=== PATIENT | female | born 1945 | race Hispanic/Latino ===

== ENCOUNTER 2019-02-17 18:57 | Emergency (ER) | payer MEDICARE, OTHER ==
[~2019-02-17] VITALS: Ht 149.9 cm; Wt 46.7 kg
[~2019-02-17 18:57] MED LIST: CYCLOBENZAPRINE5 MG PO; LEVOTHYROXINE50 MCG PO; LORTAB 5-325 M1 EACH PO; NORCO 5-325 TA1 EACH PO; PREDNISONE20 MG PO
--- NOTE | 2019-02-18 18:16 | EKG ---
[facility] [address] [facility] [place], [place] [address] Signed Sinus bradycardia Otherwise normal ECG Confirmed by COLT CROW MD ([id number]) on 02/18/2019 6:16:15 PM Electronically Signed By: COLT CROW MD 02/18/19 1816 PATIENT NAME: EMILIA SAYRA FRANCO Electrocardiogram DATE OF : 45 PHYSICIAN: COLT CROW MD REPORT #: [id number] REPORT IS CONFIDENTIAL AND NOT TO BE RELEASED WITHOUT AUTHORIZATION
== END 2019-02-17 21:42 | disposition home or self-care (01) ==
LOC: ED 18:57
DX: R03.0 Elevated blood-pressure reading, without diagnosis of hypertension (principal); R06.00 Dyspnea, unspecified; E03.9 Hypothyroidism, unspecified; Z79.899 Other long term (current) drug therapy
CPT/HCPCS: 71046; 80053; 83880; 84484; 85025; 93005; 93010; 99283-25

== ENCOUNTER 2019-08-09 10:51 | Emergency (ER) | payer MEDICARE, OTHER ==
[~2019-08-09] VITALS: Ht 149.9 cm; Wt 46.7 kg
== END 2019-08-09 12:28 | disposition home or self-care (01) ==
LOC: ED 10:51
DX: M17.11 Unilateral primary osteoarthritis, right knee (principal); E03.9 Hypothyroidism, unspecified; Z79.899 Other long term (current) drug therapy
CPT/HCPCS: 73560; 99283-25

== ENCOUNTER 2020-01-19 23:13 | Emergency (ER) | payer MEDICARE, OTHER ==
[~2020-01-19] VITALS: Ht 149.9 cm; Wt 46.3 kg
[2020-01-19] MEDS ORDERED: LISINOPRIL20 MG PO (23:32)
--- NOTE | 2020-01-21 11:00 | EKG ---
[facility] [address] [facility] [place] [address] Signed Normal sinus rhythm Normal ECG No previous ECGs available Confirmed by COLT CROW MD ([id number]) on 01/21/2020 10:59:45 AM Electronically Signed By: COLT CROW MD 01/21/20 1100 PATIENT NAME: EMILIA SAYRA FRANCO Electrocardiogram DATE OF : 45 PHYSICIAN: COLT CROW MD REPORT #: [id number] REPORT IS CONFIDENTIAL AND NOT TO BE RELEASED WITHOUT AUTHORIZATION
== END 2020-01-20 00:47 | disposition home or self-care (01) ==
LOC: ED 23:13
DX: I10 Essential (primary) hypertension (principal); E03.9 Hypothyroidism, unspecified; Z79.899 Other long term (current) drug therapy
CPT/HCPCS: 71045; 80053; 84484; 85025; 93005; 93010; 99284-25

== ENCOUNTER 2020-11-30 11:18 | Emergency (ER) | payer MEDICARE, OTHER ==
[~2020-11-30] VITALS: Ht 149.9 cm; Wt 51.3 kg
[~2020-11-30 11:18] MED LIST changes: +LISINOPRIL20 MG PO
[2020-11-30] MEDS ORDERED: BACTRIM DS TAB1 EACH PO (12:13)
== END 2020-11-30 11:24 | disposition home or self-care (01) ==
LOC: ED 11:18
DX: N39.0 Urinary tract infection, site not specified (principal); E03.9 Hypothyroidism, unspecified; I10 Essential (primary) hypertension; Z79.899 Other long term (current) drug therapy
CPT/HCPCS: 81001; 99283

== ENCOUNTER 2020-12-05 13:44 | Emergency (ER) | payer MEDICARE, OTHER ==
[~2020-12-05] VITALS: Ht 149.9 cm; Wt 51.3 kg
[~2020-12-05 13:44] MED LIST changes: +BACTRIM DS TAB1 EACH PO
--- OUTSIDE RECORDS SUMMARY | 2020-12-05 13:48 | XMS ---
PreManage Notification: SAYRA HUSAIN Security Street Supervisor Events No recent Security Events currently on file CRITERIA MET - [facility] [place] - 2 Visits in 30 Days CARE PROVIDERS There are no care providers on record at this time. Alexis has no Care Guidelines for this patient. [facility]admin[facility] VIS[facility] COUNT (12 MO.) [facility] NOTE: Visits indicate total known visits. ED/UCC VISIT TRACKING (12 MO.) 12/05/2020 13:[facility] COMPLAINT: - COUGH, NAUSEA 11/30/2020 11:19 [facility] [place] TYPE: Emergency COMPLAINT: - [place] WHEN URINATES DIAGNOSES: - Urinary tract infection, site not specified - Other terminal press operator (current) drug therapy - Essential (primary) hypertension - Hypothyroidism, unspecified 01/19/2020 23:13 [facility] [place] TYPE: Emergency COMPLAINT: - HIGH BLOOD PRESSURE DIAGNOSES: - Other terminal press operator (current) drug therapy - Essential (primary) hypertension - Hypothyroidism, unspecified INPATIENT VISIT TRACKING (12 MO.) No inpatient visits to display in this time frame [email or web address]
[2020-12-05] MEDS ORDERED: ONDANSETRON ODT8 MG PO (16:57)
== END 2020-12-05 17:30 | disposition home or self-care (01) ==
LOC: ED 13:44
DX: J06.9 Acute upper respiratory infection, unspecified (principal); Z20.822 Contact with and (suspected) exposure to COVID-19
CPT/HCPCS: 71046; 80053; 81001; 83690; 84484; 85025; 96374; 99284-25; C9803; J2405; J7030; U0003

== ENCOUNTER 2021-05-07 02:13 | Emergency (ER) | payer MEDICARE, OTHER ==
[~2021-05-07] VITALS: Ht 149.9 cm; Wt 49.4 kg
[~2021-05-07 02:13] MED LIST changes: +ONDANSETRON ODT8 MG PO
== END 2021-05-07 03:35 | disposition home or self-care (01) ==
LOC: ED 02:13
DX: S93.602A Unspecified sprain of left foot, initial encounter (principal); X50.9XXA Other and unspecified overexertion or strenuous movements or postures, initial encounter; E03.9 Hypothyroidism, unspecified; I10 Essential (primary) hypertension; M19.90 Unspecified osteoarthritis, unspecified site; Z79.899 Other long term (current) drug therapy
CPT/HCPCS: 73610; 73630; 99283-25